=== PATIENT | female | born 1955 | race Caucasian/White ===

== ENCOUNTER → 2016-07-17 | Outpatient (CLI) | payer OTHER | LOC: FIMAGING 11:02 | DX: Z12.31 Encounter for screening mammogram for malignant neoplasm of breast (principal); Z80.3 Family history of malignant neoplasm of breast | CPT/HCPCS: G0202 ==

== ENCOUNTER 2016-09-13 16:53 | Emergency (ER) | payer OTHER ==
[2016-09-13 16:58] VITALS: BP 125/69; PULSE 52; RESP 17; TEMP 97.7; O2SAT 97
[2016-09-13] MEDS ORDERED: FLUORESCEIN SODIUM 1 MG STRIP OP ONE ×2 (17:18→17:36)
[2016-09-13] MEDS ORDERED: PROPARACAINE 0.5% 15 ML OPHT DROP ONE ×2 (17:18→17:36)
--- NOTE | 2016-09-13 17:37 | EDPHY ---
H & P Time Seen by Provider: 09/13/16 17:29 HPI/ROS: CHIEF COMPLAINT: Right eye pain HISTORY OF PRESENT ILLNESS: This patient is a 60 year old female complaining of right eye pain. Earlier this evening, she was struck in the face with a retractable clothesline, which snapped into her eye. She endorses moderate pain in her right eye. She denies changes in vision or drainage from the eye. She wears glasses, but was not wearing them at the time. She does not wear contacts. ROS: No numbness, weakness, excessive bleeding, syncopal episode, other injury. Past Medical/Surgical History: Noncontributory Social History: Retired dentist. Smoking Status: Never smoked Physical Exam: Head: normal inspection, no facial melissa tenderness EYE: Visual Acuity: noted from Nurse's notes. Lids: no proptosis, no periorbital erythema or swelling, no vesicles Conjunctivae: No erythema, no discharge Pupils: equal round and reactive to light EOMI Cornea: Small corneal abrasion at 3 o'clock position Anterior chamber: Clear, no hyphema Constitutional: Initial Vital Signs Temperature (C) 36.5 C 09/13/16 16:56 Heart Rate 52 L 09/13/16 16:56 Respiratory Rate 17 09/13/16 16:56 Blood Pressure 125/69 H 09/13/16 16:56 O2 Sat (%) 97 09/13/16 16:56 O2 Delivery Mode Room Air Allergies/Adverse Reactions: No Known Allergies Allergy (Unverified 09/13/16 16:55) Home Medications: Medication Instructions Recorded Humalog 09/13/16 Lantus 100 UNITS/ML (*) 09/13/16 Ofloxacin 0.3% [Ocuflox 0.3%] 2 drops OP QID #1 [email or web address] 09/13/16 Synthroid 09/13/16 Medical Decision Making ED Course/Re-evaluation: This patient is a 60 year old female presenting with right eye pain secondary to an accidental encounter with a clothesline. Exam reveals corneal abrasion to the 3 o'clock position of her right eye. Plan to discharge home in good condition with prescription for Ocuflox. Return precautions discussed. The patient is comfortable with this plan. Differential Diagnosis: Differential diagnosis includes hyphema, acute iritis, traumatic mydriasis, corneal abrasion, globe rupture. Departure - Departure Disposition: Home, Routine, Self-Care Clinical Impression: Corneal abrasion Qualifiers: Encounter type: initial encounter Laterality: unspecified laterality Qualified Code(s): S05.00XA - Injury of conjunctiva and corneal abrasion without foreign body, unspecified eye, initial encounter Condition: Good Instructions: Corneal Abrasion (ED) Additional Instructions: 1. Use your antibiotic eye drops as prescribed. 2. You may use ice over the eye, and take 600mg Ibuprofen three times a day as needed for pain. 3. If you continue to have pain Thursday, please call to make an appointment with an client relations specialist as we discussed. 4. Return for any changes in vision or other worsening of condition. Referrals: Willow Schneider MD [Primary Care Provider] - As per Instructions Messi Gomez MD [Medical Doctor] - As per Instructions Prescriptions: Ofloxacin 0.3% [Ocuflox 0.3%] 2 drops OP QID #1 opht.[email or web address] Report Scribed for: Sharron Guo Report Scribed by: Tammie Gamble Date of Report: 09/13/16 Time of Report: 17:36 Physician Review and Approval Statement: 09/13/16 17:36 Portions of this note were transcribed by a medical operations supervisor. I personally performed a history, physical exam, medical decision making, and confirmed accuracy of information the transcribed note.
== END 2016-09-13 18:02 | disposition home or self-care (01) ==
DX: S05.01XA Injury of conjunctiva and corneal abrasion without foreign body, right eye, initial encounter (principal); W22.8XXA Striking against or struck by other objects, initial encounter

== ENCOUNTER → 2017-07-20 | Outpatient (CLI) | payer OTHER | LOC: FIMAGING 07:38 | PROVIDERS: ATTEND Internal Medicine | DX: Z12.31 Encounter for screening mammogram for malignant neoplasm of breast (principal); Z80.3 Family history of malignant neoplasm of breast ==